=== PATIENT | male | born 1945 | race American Indian/Alaskan Native ===

== ENCOUNTER 2016-10-17 10:44 | Day surgery (SDC) | payer MEDICARE ==
[~2016-10-17 10:44] MED LIST: DECADRON ONE; DILAUDID ONE; DIPRIVAN 10 MG/ML IV ONE; SUBLIMAZE ONE; XYLOCAINE MPF 2% ONE; ZOFRAN ONE
[2016-10-17] MEDS ORDERED: ANCEF/STERILE WATER 2 GM/20 ML 2 GM/20 ML SYRINGE IV NR (11:00)
[2016-10-17] MEDS ORDERED: NACL 0.9% 1000 ML 1,000 ML ONE ×2 (12:11→13:37)
--- NOTE | 2016-10-17 12:50 | Anesthesia Consultation ---
Anesthesia Consult and Med Hx Date of service: 10/17/16 - Airway Anesthetic Teeth Evaluation: Poor, Partials ROM Head & Neck: Inadequate Mental/Hyoid Distance: Adequate Mallampati Class: Class III Intubation Access Assessment: Possibly Difficult - Pulmonary Exam CTA: Yes - Cardiac Exam Cardiac Exam: RRR - Pre-Operative Health Status ASA Pre-Surgery Classification: ASA3 Proposed Anesthetic Plan: General - Pre-Anesthesia Comment Pre-Anesthesia Comments: 2/6 holosystolic murmur. Medical evaluation is on chart. ECHO shows aortic sclerosis with EF 55-65%. There is moderate pulmonary hypertension. - Pulmonary Hx Smoking: Yes (STOPPED X 10 YRS-1/2PPD X 50 YRS) COPD: Yes (NO MEDS) Hx Sleep Apnea: No (TRANG PRE SCREEN HIGH RISK) - Cardiovascular System Hx Hypertension: Yes (X 10 YRS) Hx Angina: No (Patient does not exercist much but he denies chest pain and tightness ) - Central Nervous System Hx Seizures: Yes (- WITH HEAD INJURY- NO MEDS) Hx Back Pain: Yes - Other Systems Hx Alcohol Use: Yes (2-4 BEERS PER DAY)
--- NOTE | 2016-10-17 12:51 | Anesthesia Day of Surgery ---
Anesthesia Day of Surgery - Day of Surgery Patient Examined: Yes Patient H&P Reviewed: Yes Patient is NPO: Yes Cardiac Clearance: Yes (medical clesrance with ECHO)
[2016-10-17] MEDS ORDERED: TYLENOL PO PRN (12:52)
[2016-10-17] MEDS ORDERED: ZOFRAN IV PRN (12:52)
[2016-10-17 12:53] LABS: BUN/Creatinine Ratio 13.33; Blood Urea Nitrogen 8 mg/dL (9-20); Calcium 9.9 mg/dL (8.4-10.2); Carbon Dioxide 27 mmol/L (22-30); Glucose 91 mg/dL (75-100)
[2016-10-17 12:54] LABS: Anion Gap 19 mmol/L; Chloride 101.6 mmol/L (98-107); Potassium 3.8 mmol/L (3.6-5.0); Sodium 144 mmol/L (137-145)
[2016-10-17] MEDS ORDERED: ANCEF/STERILE WATER 2 GM/20 ML IV NR (13:00)
[2016-10-17] MEDS ORDERED: NACL 0.9% 1000 ML 1,000 ML IV SCH (13:00)
[2016-10-17] MEDS ORDERED: NEO SYNEPHRINE/NS Syringe(OR USE) IV ONE (13:00)
[2016-10-17] MEDS ORDERED: PEPCID IV NR (13:00)
[2016-10-17] MEDS ORDERED: DIPRIVAN 10 MG/ML IV ONE ×2 (13:10→13:14)
--- NOTE | 2016-10-17 13:13 | Post Operative Note ---
Pre-op diagnosis: prostate cancer Post-op diagnosis: same Findings: prostate Procedure: op note Preoperative diagnosis prostate cancer Postoperative diagnosis same Procedure Cryosurgical ablation of the prostate and cystoscopy Surgeon Dr. Rojas Anesthesia Gen. Findings as above Procedure Patient was brought to the operating room placed on the operating table. Following the induction of anesthesia which was general was placed in the lithotomy position prepped and draped using sterile fashion. Francis catheter was inserted without difficulty and the ultrasound gantry and probe were put together and inserted. Excellent visualization of prostate which was mobile was obtained. The gland measured approximately 20 g The computer mapped out 6 probes and probes 1 and 2 were then inserted With the insertion of the initial probes the prostate moved and we had to guide our of the probe placement and the temperature probes somewhat manually and somewhat according to the computer based upon ultrasound guidance and visualization Probe external sphincter and then on his were then placed in excellent position. The date of his platelet probe was placed right into the gland at the level of the capsule Probes 5 and 6 and 3 and 4 were then placed patient tolerates procedure well At this point the Francis catheter was removed and flexible cystoscopy showed no urethral injury no bladder neck or bladder injury. The rigid wire was placed under ultrasound guidance and the warmer was placed under ultrasound guidance in excellent position. The first freeze was excellent we had an excellent ice ball and then we did a full thaw we rechecked the probe placement once again throughout the procedure Once we rechecked all the probes a second freeze was carried out Once again in a symmetrical fashion we had an excellent ice and we were able to connect the 's peak in the center A full 20 minutes thaw until we are out of gas was achieved We then left the warmer for some more time and then replaced it with a 20 Coude catheter. Patient a procedure on the significant combinations per to recovery room in stable condition Anesthesia: GETA Surgeon: DEVORA ROJAS Estimated blood loss: minimal Pathology: none Condition: stable Disposition: PACU
--- NOTE | 2016-10-17 13:15 | Discharge Summary ---
Short Stay Discharge Plan Activity: other (no straining ) Weight Bearing Status: Full Weight Bearing Diet: low fat, low cholesterol, low salt Special Instructions: other (inc fluids ... watters care ) Durable Medical Equipment Needed Upon Discharge: other (watters ) Follow up with: VLADISLAV ROSALES MD [Primary Care Provider] - 7 Days DEVORA MERRILL MD [Staff Physician] - 7 Days
[2016-10-17] MEDS ORDERED: ePHEDrine SULFATE ONE (13:34)
[2016-10-17] MEDS ORDERED: LASIX ONE (14:42)
[2016-10-17] MEDS: MORPHINE IV PRN ×2 (15:05→15:15)
--- NOTE | 2016-10-17 15:43 | Post Anesthesia Evaluation ---
- Post Anesthesia Evaluation Patient Participated: Yes Airway Patent: Yes Stable Respiratory Function: Yes Nausea/Vomiting: No Temp > 96.8F: Yes Pain Manageable: Yes Adequeate Hydration: Yes Anesthesia Complications: No
[2016-10-17] MEDS ORDERED: NORCO 5/325 PO SCH (16:25)
[2016-10-17 19:36] VITALS: BP 127/87
== END 2016-10-17 17:20 | disposition home or self-care (01) ==
LOC: OR 10:44
PROVIDERS: ATTEND Urology
DX: C61 Malignant neoplasm of prostate (principal); J44.9 Chronic obstructive pulmonary disease, unspecified; I10 Essential (primary) hypertension; Z87.891 Personal history of nicotine dependence; Z79.899 Other long term (current) drug therapy; Z72.89 Other problems related to lifestyle; Z88.8 Allergy status to other drugs, medicaments and biological substances
CPT/HCPCS: 36415; 55873; 80048; C2618; J0690; J1100; J1170; J1940; J2270; J2370; J2405; J2704; J3010; J7030